=== PATIENT | male | born 1955 | race Caucasian/White ===

== ENCOUNTER 2023-04-17 08:28 | Outpatient (CLI) | payer MEDICARE, SELFPAY | END 2023-04-17 08:29 | disposition home or self-care (01) | PROVIDERS: PCP Family Medicine; Visit Provider Family Medicine | DX: Z00.00 Encounter for general adult medical examination without abnormal findings (principal); E78.2 Mixed hyperlipidemia; E11.9 Type 2 diabetes mellitus without complications; I10 Essential (primary) hypertension; Z12.5 Encounter for screening for malignant neoplasm of prostate | CPT/HCPCS: 80048; 80061; 84460; G0103 ==

== ENCOUNTER 2025-01-25 09:53 | Outpatient (CLI) | payer MEDICARE, SELFPAY | END 2025-01-25 09:54 | disposition home or self-care (01) | LOC: FBOREF 09:54 | PROVIDERS: PCP Family Medicine; Visit Provider Family Medicine | DX: E11.9 Type 2 diabetes mellitus without complications (principal) | CPT/HCPCS: 82043; 82570 ==

== ENCOUNTER 2025-02-09 15:00 | Outpatient (CLI) | payer MEDICARE, SELFPAY | END 2025-02-09 15:01 | disposition home or self-care (01) | LOC: NFLDREF 02-11 17:42 | PROVIDERS: PCP Family Medicine; Referring Provider Family Medicine; Visit Provider Family Medicine | DX: I10 Essential (primary) hypertension (principal); N40.0 Benign prostatic hyperplasia without lower urinary tract symptoms; E78.2 Mixed hyperlipidemia; Z12.5 Encounter for screening for malignant neoplasm of prostate | CPT/HCPCS: 80048; 80061; 84460; G0103 ==